=== PATIENT | female | born 1970 | race Caucasian/White ===

== ENCOUNTER 2016-08-08 04:09 | Inpatient (IN) | payer OTHER ==
[~2016-08-08] VITALS: Ht 162.6 cm; Wt 63.5 kg
[2016-08-08 05:09] LABS: HEMOGLOBIN 16.1 gm/dl (12.3-15.3); RED BLOOD COUNT 4.94 M/UL (4.00-5.10); WHITE BLOOD COUNT 22.6 K/UL (4.5-11.0)
[2016-08-08 05:33] LABS: BUN/CREATININE RATIO 13 (0-10)
[2016-08-08] MEDS ORDERED: BREO ELLIPTA 11 EACH INH (09:06)
[2016-08-08] MEDS ORDERED: TUDORZA PRESS400 MCG INH (09:06)
[2016-08-08] MEDS ORDERED: FLUCONAZOLE150 MG PO (09:08)
[2016-08-08] MEDS ORDERED: DICLOFENAC SODI25 MG PO (09:08)
[2016-08-08] MEDS ORDERED: XOPENEX0.31 MG/3 INH (09:09)
[2016-08-09 06:14] LABS: HEMOGLOBIN 13.9 gm/dl (12.3-15.3); RED BLOOD COUNT 4.23 M/UL (4.00-5.10)
[2016-08-09 06:17] LABS: BUN/CREATININE RATIO 23 (0-10)
[2016-08-09] MEDS ORDERED: LEVAQUIN750 MG PO (14:43)
[2016-08-09] MEDS ORDERED: TESSALON PERLE100 MG PO (14:44)
[2016-08-09] MEDS ORDERED: MEDROL DOSEPAK 24 MG PO (14:46)
== END 2016-08-09 15:09 | disposition left against medical advice (07) | DRG 190 ==
LOC: ER1 04:09 → M/S 06:03
PROVIDERS: Family Medicine; Hospitalist; ADMIT Internal Medicine
DX: J44.0 Chronic obstructive pulmonary disease with (acute) lower respiratory infection (principal); J18.9 Pneumonia, unspecified organism; J44.1 Chronic obstructive pulmonary disease with (acute) exacerbation; F17.210 Nicotine dependence, cigarettes, uncomplicated; D72.829 Elevated white blood cell count, unspecified; T38.0X5A Adverse effect of glucocorticoids and synthetic analogues, initial encounter; Z90.710 Acquired absence of both cervix and uterus
CPT/HCPCS: 36415; 36600; 71010; 80048; 80053; 82550; 82553; 82803; 83874; 84484; 85025; 85027; 85379; 87040; 87070; 87205; 93005; 94640; 94664; 96374; 96375; 99285; J0456; J0696; J1885; J1956; J2270; J2405; J2930; J7030; J7050

== ENCOUNTER 2020-05-26 23:33 | Inpatient (IN) | payer MEDICARE, OTHER ==
[~2020-05-26] VITALS: Ht 160 cm; Wt 62.6 kg
[~2020-05-26 23:33] MED LIST: ALPRAZOLAM0.5 MG PO; BREO ELLIPTA 11 EACH INH; BROVANA15 MCG/2 M NEB; BUDESONIDE0.5 MG/2 M NEB; BUSPAR 10MG10 MG PO; DICLOFENAC SODI25 MG PO; ELAVIL 25 MG TA25 MG PO; FLUCONAZOLE150 MG PO; LEVAQUIN500 MG PO; LEVAQUIN750 MG PO; MEDROL DOSEPAK 24 MG PO; MUCINEX DM ER1 EAC1 PO; NAPROSYN500 MG PO; NICOTINE PATCH1 EAC1 TD; NORFLEX 100 MG100 MG PO; PERCOCET 5/325 T1 EA PO; PREDNISONE 20 M20 MG GT; TAMIFLU 75 MG C75 MG PO; TESSALON PERLE100 MG PO; TRELEGY INH; TUDORZA PRESS400 MCG INH; VOLTAREN EC 2525 MG PO; XOPENEX HFA15 GM INH; XOPENEX0.31 MG/3 INH; XOPENEX0.63 MG/3 INH
[2020-05-26 23:56] LABS: HEMOGLOBIN 15.7 gm/dl (12.3-15.3); RED BLOOD COUNT 4.84 M/UL (4.00-5.10); WHITE BLOOD COUNT 13.2 K/UL (4.5-11.0)
[2020-05-27 00:17] LABS: BUN/CREATININE RATIO 16 (0-10)
[2020-05-27] MEDS ORDERED: SIMVASTATIN10 MG PO (03:26)
[2020-05-27] MEDS ORDERED: XANAX0.5 MG PO (03:28)
[2020-05-27] MEDS ORDERED: DALIRESP250 MCG PO (03:31)
[2020-05-28 03:27] LABS: HEMOGLOBIN 14.1 gm/dl (12.3-15.3); RED BLOOD COUNT 4.43 M/UL (4.00-5.10); WHITE BLOOD COUNT 14.1 K/UL (4.5-11.0)
[2020-05-28 03:52] LABS: BUN/CREATININE RATIO 29 (0-10)
[2020-05-28] MEDS ORDERED: AUGMENTIN 875-1 EACH PO (08:47)
[2020-05-28] MEDS ORDERED: PREDNISONE 10 M10 MG PO (08:47)
== END 2020-05-28 16:14 | disposition home or self-care (01) | DRG 193 ==
LOC: ER1 23:33 → CDU 05-27 03:18 → M/S 05-27 03:18
PROVIDERS: Family Medicine; Physician Assistant; ADMIT Family Medicine
DX: J13 Pneumonia due to Streptococcus pneumoniae (principal); J96.21 Acute and chronic respiratory failure with hypoxia; R65.10 Systemic inflammatory response syndrome (SIRS) of non-infectious origin without acute organ dysfunction; J44.1 Chronic obstructive pulmonary disease with (acute) exacerbation; J44.0 Chronic obstructive pulmonary disease with (acute) lower respiratory infection; Z20.822 Contact with and (suspected) exposure to COVID-19; F17.210 Nicotine dependence, cigarettes, uncomplicated; F41.9 Anxiety disorder, unspecified; Z99.81 Dependence on supplemental oxygen; Z90.49 Acquired absence of other specified parts of digestive tract; Z90.710 Acquired absence of both cervix and uterus
CPT/HCPCS: 0240U; 36600; 71045; 71250; 80048; 80053; 82550; 82553; 82803; 83605; 83874; 83880; 84484; 85025; 85610; 87040; 87070; 87205; 93005; 94640; 94664; 94760; 96365; 96375; 96376; 99285; J0456; J0696; J1650; J2920; J2930; J7030

== ENCOUNTER → 2020-09-24 | Outpatient (CLI) | payer MEDICARE, OTHER ==
[~2020-09-24] MED LIST changes: +AUGMENTIN 875-1 EACH PO; +DALIRESP250 MCG PO; +PREDNISONE 10 M10 MG PO; +SIMVASTATIN10 MG PO; +XANAX0.5 MG PO
== END ==
LOC: KOH-I 14:43
DX: R31.1 Benign essential microscopic hematuria (principal)
CPT/HCPCS: 71250

== ENCOUNTER → 2021-04-28 | Outpatient (CLI) | payer MEDICARE, OTHER | LOC: KOH-I 02-02 13:00 | DX: R91.1 Solitary pulmonary nodule (principal) | CPT/HCPCS: 71250 ==

== ENCOUNTER → 2021-08-24 | Outpatient (CLI) | payer MEDICARE, OTHER | LOC: HEART 5 14:06 | DX: I70.213 Atherosclerosis of native arteries of extremities with intermittent claudication, bilateral legs (principal) ==

== ENCOUNTER 2021-09-17 21:27 | Inpatient (IN) | payer MEDICARE, OTHER ==
[~2021-09-17] VITALS: Ht 157.5 cm; Wt 55.0 kg
[~2021-09-17 21:27] MED LIST changes: +TRELEGY ELLIPT1 EACH INH; -TRELEGY INH
[2021-09-17 22:04] LABS: HEMOGLOBIN 17.4 gm/dl (12.3-15.3); RED BLOOD COUNT 5.49 M/UL (4.00-5.10); WHITE BLOOD COUNT 10.6 K/UL (4.5-11.0)
[2021-09-17 22:33] LABS: BUN/CREATININE RATIO 17 (0-10)
[2021-09-18] MEDS ORDERED: ASPIRIN EC81 MG PO (10:13)
[2021-09-18] MEDS ORDERED: DALIRESP250 MCG PO (10:14)
[2021-09-19 05:52] LABS: HEMOGLOBIN 15.6 gm/dl (12.3-15.3); RED BLOOD COUNT 5.04 M/UL (4.00-5.10)
[2021-09-19 06:24] LABS: BUN/CREATININE RATIO 26 (0-10)
--- NOTE | 2021-09-19 07:13 | NUR ---
PT UPSET BECAUSE MENU SAYS CREAM OF WHEAT AND SHE CANT EAT IT. KITCHEN CALLED AND SAID THEY WILL TRY TO GET IT TO HER. VERY ANXIOUS THIS MORNING.WANTS OXYGEN UP AND THEN DOWN, WANTS HEAT ON THEN AIR.
--- NOTE | 2021-09-19 17:05 | NUR ---
PT HAS VOICED MANY PERSONAL CONCERNS TODAY WITH ISSUES FROM FAMILY AND HOME. I WAS ABLE TO LISTEN AND HELP HER SORT SOME THINGS OUT AND SHE SEEMS MUCH MORE COMFORTABLE THIS AFTERNOON, WILLCONTINU TO MONITOR. SHE IS RESTING AT THIS TIME. DECLINED BIPAP BUT WILL WEAR TONIGHT PER PT.
--- NOTE | 2021-09-19 17:42 | NUR ---
PT WOKE CALLED OUT AND HER SATS WERE 63% HER BIPAP PLACED AND SHE RECOVERED QUICKLY WITH SATS 94% WILL CONINUE TO MONITOR.
[2021-09-20 07:07] LABS: WHITE BLOOD COUNT 10.6 K/UL (4.5-11.0)
[2021-09-20 07:08] LABS: RED BLOOD COUNT 5.81 M/UL (4.00-5.10)
[2021-09-20 07:17] LABS: BUN/CREATININE RATIO 35 (0-10)
--- NOTE | 2021-09-20 09:14 | NUR ---
report called and pt to move to room [id number]
[2021-09-21 04:46] LABS: HEMOGLOBIN 16.7 gm/dl (12.3-15.3); RED BLOOD COUNT 5.64 M/UL (4.00-5.10)
[2021-09-21 05:11] LABS: BUN/CREATININE RATIO 43 (0-10)
[2021-09-22 04:01] LABS: HEMOGLOBIN 16.5 gm/dl (12.3-15.3); RED BLOOD COUNT 5.32 M/UL (4.00-5.10); WHITE BLOOD COUNT 9.8 K/UL (4.5-11.0)
[2021-09-22 04:24] LABS: BUN/CREATININE RATIO 30 (0-10)
[2021-09-23 02:34] LABS: HEMOGLOBIN 16.7 gm/dl (12.3-15.3); RED BLOOD COUNT 5.44 M/UL (4.00-5.10); WHITE BLOOD COUNT 9.4 K/UL (4.5-11.0)
[2021-09-23 03:29] LABS: BUN/CREATININE RATIO 29 (0-10)
[2021-09-23] MEDS ORDERED: OMNICEF 300 MG300 MG PO (08:51)
[2021-09-23] MEDS ORDERED: AZITHROMYCIN250 MG PO (08:51)
== END 2021-09-23 11:35 | disposition home or self-care (01) | DRG 871 ==
LOC: ER1 21:27 → CCU 23:58 → MED SURG 4 23:58 → PROG CARE 23:58 → CDU 23:58 → MED SURG 4 09-18 02:26 → CCU 09-20 09:36 → PROG CARE 09-22 12:39
PROVIDERS: Family Medicine; Internal Medicine; ADMIT Internal Medicine
PROC: 3E03329 Introduction of Other Anti-infective into Peripheral Vein, Percutaneous Approach (ICD-10-PCS; principal; 2021-09-18)
PROC: 5A09357 Assistance with Respiratory Ventilation, Less than 24 Consecutive Hours, Continuous Positive Airway Pressure (ICD-10-PCS; 2021-09-19)
PROC: B24BZZZ Ultrasonography of Heart with Aorta (ICD-10-PCS; 2021-09-20)
PROC: 5A09357 Assistance with Respiratory Ventilation, Less than 24 Consecutive Hours, Continuous Positive Airway Pressure (ICD-10-PCS; 2021-09-20)
PROC: 5A09357 Assistance with Respiratory Ventilation, Less than 24 Consecutive Hours, Continuous Positive Airway Pressure (ICD-10-PCS; 2021-09-21)
PROC: 5A09357 Assistance with Respiratory Ventilation, Less than 24 Consecutive Hours, Continuous Positive Airway Pressure (ICD-10-PCS; 2021-09-22)
DX: A41.9 Sepsis, unspecified organism (principal); J18.9 Pneumonia, unspecified organism; J96.21 Acute and chronic respiratory failure with hypoxia; J96.22 Acute and chronic respiratory failure with hypercapnia; J44.0 Chronic obstructive pulmonary disease with (acute) lower respiratory infection; J44.1 Chronic obstructive pulmonary disease with (acute) exacerbation; R65.20 Severe sepsis without septic shock; F41.9 Anxiety disorder, unspecified; F17.200 Nicotine dependence, unspecified, uncomplicated; D75.1 Secondary polycythemia; E87.5 Hyperkalemia; Z20.822 Contact with and (suspected) exposure to COVID-19; Z99.81 Dependence on supplemental oxygen; Z90.49 Acquired absence of other specified parts of digestive tract; Z90.710 Acquired absence of both cervix and uterus; Z98.890 Other specified postprocedural states; Z88.8 Allergy status to other drugs, medicaments and biological substances; Z79.52 Long term (current) use of systemic steroids; Z90.89 Acquired absence of other organs; Z79.82 Long term (current) use of aspirin; Z79.899 Other long term (current) drug therapy
CPT/HCPCS: ECHO; 0240U; 36415; 36600; 71045; 80048; 80053; 82550; 82553; 82803; 83605; 83735; 83880; 84484; 85025; 85027; 85610; 87040; 87070; 87205; 93005; 93306; 94640; 94660; 94664; 94760; 96374; 99285; C1751; G0378; J0456; J0696; J1650; J1940; J2060; J2920; J2930; J7030